=== PATIENT | female | born 1980 | race Caucasian/White ===

== ENCOUNTER 2025-07-22 06:33 | Emergency (ER) | payer MEDICAID, SELFPAY ==
[2025-07-22 06:35] VITALS: BP 124/85; PULSE 93; RESP 18; TEMP 36.6; O2SAT 95; BMI 26.1
[2025-07-22 06:39] VITALS: BP 112/68; PULSE 89; RESP 18; TEMP 36.6; O2SAT 95
--- NOTE | 2025-07-22 06:39 | ED.VIS.BACK ---
HPI History of Present Illness Chief Complaint: Back Detail of Chief Complaint: Right low back pain that radiates to the greater trochanteric and lateral s Informant: patient Onset/Context/Timing Onset: Yesterday Context: Sudden Onset Injury: - (No history of trauma) Timing: Continuous Quality: Aching Location: Lumbar and Right Leg Current Severity: Mild Maximum Severity: Severe Worsened by: improves with Movement, Ambulation, Bending and Lifting Relieved by: Nothing Associated Symptoms Associated Symptoms: Radiation to Right Leg and - (No recent dental procedure. No history of cancer. No saddle paresthesia or anesthesia. No buckling of her right or left knee going up or down steps no foot drop.); Negative for Numbness, Tingling, Radiation to Left Leg, Fever, Abdominal Pain, Dysuria, Unable to Ambulate, Unable to Transfer, Urinary Retention, Urinary Incontinence, Constipation or Fecal Incontinence Narrative Narrative: Patient is a 44-year-old woman with history of hypertension. She had prior back pain due to muscular etiology. There is no history of direct or indirect trauma. She denies bowel bladder dysfunction. She denies radicular pain. She does have pain that radiates to the lateral right thigh. It does not go past the knee joint. She has no saddle paresthesia or anesthesia. There is been no fever or chills. There is no night sweats or weight loss. There is no history of cancer, recent dental procedure. Patient states she used heating pad. Pain is gotten worse. She has not noted any skin lesions. She has had this before and was told it was musculoskeletal. Prior similar symptoms: Yes Recent Illness/Hospitalization: No PFSH PFSH Medical History Degenerative disc disease Hypertension Home Medications ?Medication ?Instructions ?Recorded ?Last Taken ?Type hydrocodone-acetaminophen 5-325mg 1 tab PO Q6H PRN PRN Pain 1 day #4 07/22/25 Unknown Rx 5mg-325mg TABLETS naproxen 500 mg tablet 500 mg PO BID #14 tabs 07/22/25 Unknown Rx Allergy/AdvReac Type Severity Reaction Status Date / Time No Known Allergies Allergy Verified 07/22/25 06:35 ROS ROS ED Constitutional Constitutional ED: Denies chills, fever(s), subjective, sweats or weight loss ENT ENT ED: Reports other Details: No dental work recently ; Denies ear pain, rhinorrhea or sore throat Cardiovascular Cardiovascular: Denies chest pain Respiratory/Chest Respiratory/Chest: Denies dyspnea Gastrointestinal Gastrointestinal: Denies abdominal pain, diarrhea, nausea or vomiting Musculoskeletal Musculoskeletal: Reports back pain; Denies arthralgias, myalgias or neck pain Integumentary Denies rash Neurologic Neurologic: Denies paresthesias or weakness Hematologic/Lymphatic Hematologic/Lymphatic: Denies easy bleeding or easy bruising EXAM Physical Exam Const Vital Signs: 07/22/25 06:35 Temperature 98 F Temperature Source Oral Pulse Rate 93 Respiratory Rate 18 Blood Pressure 124/85 H Blood Pressure Mean 98 Pulse Ox 95 Oxygen Delivery Method Room Air Vital signs reveal slight elevation of blood pressure. Positive well nourished and well developed Constitutional Narrative: Patient appears uncomfortable when she walks and has a slight limp. General Appearance ED: well developed; Negative for pallor HEENT Reports moist mucous membranes HEENT Narrative: Head is atraumatic and normocephalic. Ears are normal. Posterior pharynx is normal. Eyes PERRL and EOMs intact bilaterally General Eye ED: Negative for pale conjunctiva or scleral icterus Neck no lymphadenopathy, supple and no JVD Resp normal respiratory effort Cardio regular rate and regular rhythm GI normal to inspection, nondistended, normoactive bowel sounds, soft to palpation, non-tender, non-distended and no masses Back/Spine normal to inspection Back/Spine Narrative: No central midline back pain. There is pain the patient right paralumbar area. Elevating her right lower extremity 5 degrees causes her pain. Darin Ronald 4 test causes pain medial thigh. Straight leg test is negative on the left. There is no crossover. EHLs intact bilaterally. Patient reports abnormal sensation S1 on the right. She has 5/5 strength with plantar dorsiflexion. Gait was observed and there is no foot drop. Patellar and ankle reflex are 2+ and symmetric. Sensation L3-L5 is normal and symmetric. DP pulse and PT pulse are palpable. There is no inguinal lymphadenopathy. Extremity normal to inspection and no clubbing, cyanosis or edema Neuro oriented x3 and no sensory deficits noted Sensorium / Orientation: alert Motor Exam: strength 5/5 throughout Deep Tendon Reflexes: Rt Patellar (L4): 2+, Lt Patellar (L4): 2+, Rt Ankle (S1): 2+ and Lt Ankle (S1): 2+ Deep Tendon Reflexes Back: Rt Patellar (L4): 2+, Lt Patellar (L4): 2+, Rt Ankle (S1): 2+ and Lt Ankle (S1): 2+ Plantar Reflex: Downgoing: bilateral (There is no clonus either side.) Psych mental status grossly normal Skin no rashes or lesions noted and no wounds General Skin Exam: Negative for jaundice or pallor MDM MDM MDM Narrative Medical decision making narrative: Differential diagnosis is [place] low back pain, may be due to paralumbar muscle strain versus degenerative disc. History and physical is not consistent with herniated disc, spontaneous epidural hematoma or epidural abscess. Her physical is not consistent with cauda equina either. History & Record Review Discussion w/independent historian: Patient Additional record(s) reviewed:: No prior records Treatment and Re-Evaluation Narrative: Since patient drove herself she was treated with Naprosyn. She was discharged to home with NSAID and 24-hour supply of opiate analgesia. Discharge Plan Triage Chief Complaint: Back ED Provider: Boby Menendez Dx/Rx/DC Orders Clinical Impression: Acute lumbar myofascial strain, Elevated blood pressure reading with diagnosis of hypertension Instructions: ED Back Sprain/Strain Prescriptions: New hydrocodone-acetaminophen 5-325 mg tablet 1 tab PO Q6H PRN PRN (Reason: Pain) 1 Days Qty: 4 0RF naproxen 500 mg tablet 500 mg PO BID Qty: 14 0RF Primary Care Provider: Care Physician,No Primary Referrals: Care Physician,No Primary [[facility] Care Provider[facility] - [facility] - 3-5 Days if not improving Activity Restrictions/Additional Instructions: 1. Apply ice to your lower back 6-8 times a day for the next 3 days. 2. If you are unable to urinate, have loss of bowel control or are dragging your right leg return to the emergency department immediate Print Language: [place] Disposition Disposition: Home, Self Care
== END 2025-07-22 07:01 | disposition home or self-care (01) ==
LOC: ED 06:59
PROVIDERS: Emergency Provider Emergency Medicine; Visit Provider Emergency Medicine
DX: S39.012A Strain of muscle, fascia and tendon of lower back, initial encounter (principal); I10 Essential (primary) hypertension; X58.XXXA Exposure to other specified factors, initial encounter
CPT/HCPCS: 99282